=== PATIENT | male | born 1945 | race Caucasian/White ===

== ENCOUNTER 2016-05-10 20:46 | Inpatient (IN) | payer MEDICARE, MEDICAID ==
--- NOTE | 2016-05-10 20:52 | ED Physician Chart ---
Chief Complaint/HPI - Patient Information Date Seen:: 05/10/16 Time Seen:: 20:49 Chief Complaint:: ALOC History of Present Illness:: 70-year-old male history of dementia, TIA, brought in by EMS with acute, moderate, altered level of consciousness that happened earlier today. Also may have some associated lower leg swelling/infection. History limited patient underlying dementia prevents good history History provided by EMS and EMS run sheet Historian:: EMS Review:: Nurse's Note Reviewed, EMS run form Reviewed, Transfer documents Reviewed Review of Systems - Review of Systems Other: Complete system review otherwise unremarkable except as noted in HPI. Past Medical History - Past Medical History Past Medical History: HTN, Dyslipidemia, Dementia Family History: None Social History: Non Smoker, No Alcohol, No Drug Use, Care Facility Surgical History: None Psychiatricy History: None Medication: Reviewed Family Medical History - Family Member Mother History Unknown: Yes Ethnicity: Non- Physical Exam - Physical Examination Other:: INITIAL VITAL SIGNS: Reviewed by me GENERAL: Alert and interactive demented and oriented only to self. No acute distress HEAD: Head is normocephalic and atraumatic EYES: EOMI. . No scleral icterus. No conjunctival injection ENT: Moist mucous membranes. NECK: Supple. No masses. Full range of motion RESPIRATORY: No tachypnea. Clear breath sounds bilaterally. No wheezing, rales, or rhonchi CV: Regular rate and rhythm. No murmurs, rubs, or gallops ABDOMEN: Soft, non-distended, non-tender. No guarding. No rebound. No masses. EXTREMITIES: No deformity. No cyanosis. Slight bilateral lower extremity erythema and slight edema. SKIN: Warm and dry. No obvious rashes. NEUROLOGIC: Alert and oriented. Face is symmetric. Speech is normal. Moves all extremities equally. Motor and sensory distally intact. Labs/Radiology/EKG Results - Lab Results Results: Lab Results 05/10/16 05/10/16 05/10/16 Range/Units 21:11 21:16 21:16 WBC 7.7 (4.8-10.8) Th/cmm RBC 5.35 (3.80-5.80) Mil/cmm Hgb 15.3 (12.6-17.4) gm/dL Hct 46.3 (39.0-49.0) % MCV 86.6 (80-99) fl MCH 28.6 (27.0-31.0) pg MCHC Differential 33.0 (28.0-36.0) pg RDW 12.7 (11.5-20.0) % Plt Count 194 (150-400) Th/cmm MPV 9.3 fl Neutrophils % 56.9 (40.0-80.0) % Lymphocytes % 24.6 (20.0-50.0) % Monocytes % 11.4 H (2.0-10.0) % Eosinophils % 5.6 H (0.0-5.0) % Basophils % 1.5 (0.0-2.0) % PT 11.4 (9.5-11.5) SECONDS INR 1.09 (0.5-1.4) PTT (Actin FS) 28.4 (26.0-38.0) SECONDS D-Dimer (100-400) ng/mL Sodium 130 L (136-145) mEq/L Potassium 3.9 (3.5-5.1) mEq/L Chloride 100 (98-107) mEq/L Carbon Dioxide 24.1 (21.0-31.0) mEq/L Anion Gap 9.8 (7.0-16.0) BUN 14 (7-25) mg/dL Creatinine 1.0 (0.7-1.3) mg/dL Est GFR ( Amer) > 60.0 (>90) ml/min Est GFR (Non-Af Amer) > 60.0 ml/min BUN/Creatinine Ratio 14.0 Glucose 131 H (70-105) mg/dL Whole Bld Lactic Acid (0.60-1.99) mmol/L Calcium 9.1 (8.6-10.3) mg/dL Total Bilirubin 0.5 (0.3-1.0) mg/dL AST 17 (13-39) U/L ALT 23 (7-52) U/L Alkaline Phosphatase 71 (34-104) U/L Ammonia (16-53) umol/L Creatine Kinase 64 (30-223) U/L Total Protein 6.2 (6.0-8.3) gm/dL Albumin 3.7 L (4.2-5.5) gm/dL Globulin 2.5 gm/dL Albumin/Globulin Ratio 1.5 (1.0-1.8) 05/10/16 05/10/16 05/10/16 Range/Units 21:16 21:16 21:16 WBC (4.8-10.8) Th/cmm RBC (3.80-5.80) Mil/cmm Hgb (12.6-17.4) gm/dL Hct (39.0-49.0) % MCV (80-99) fl MCH (27.0-31.0) pg MCHC Differential (28.0-36.0) pg RDW (11.5-20.0) % Plt Count (150-400) Th/cmm MPV fl Neutrophils % (40.0-80.0) % Lymphocytes % (20.0-50.0) % Monocytes % (2.0-10.0) % Eosinophils % (0.0-5.0) % Basophils % (0.0-2.0) % PT (9.5-11.5) SECONDS INR (0.5-1.4) PTT (Actin FS) (26.0-38.0) SECONDS D-Dimer < 100 L (100-400) ng/mL Sodium (136-145) mEq/L Potassium (3.5-5.1) mEq/L Chloride (98-107) mEq/L Carbon Dioxide (21.0-31.0) mEq/L Anion Gap (7.0-16.0) BUN (7-25) mg/dL Creatinine (0.7-1.3) mg/dL Est GFR ( Amer) (>90) ml/min Est GFR (Non-Af Amer) ml/min BUN/Creatinine Ratio Glucose (70-105) mg/dL Whole Bld Lactic Acid 1.39 (0.60-1.99) mmol/L Calcium (8.6-10.3) mg/dL Total Bilirubin (0.3-1.0) mg/dL AST (13-39) U/L ALT (7-52) U/L Alkaline Phosphatase (34-104) U/L Ammonia 53 (16-53) umol/L Creatine Kinase (30-223) U/L Total Protein (6.0-8.3) gm/dL Albumin (4.2-5.5) gm/dL Globulin gm/dL Albumin/Globulin Ratio (1.0-1.8) - EKG Interpretations Comments:: 12-lead EKG Interpretation by Anival Walker MD: Normal Sinus Rhythm with ventricular rate of 78 beats per minute Normal axis Normal intervals Multi-forming ventricular premature complexes No acute ST or T wave changes. No obvious STEMI ED Septic Shock - . Is Septic Shock (SBP<90, OR Lactate>4 mmol\L) present?: No Reassessment (Disposition) - Reassessment Reassessment:: Patient is difficult to obtain a good history from. He does have underlying dementia. Unsure what his baseline is. Discussed the case with Dr. Bhatia. Patient appears to be change from his baseline mental status. Patient admitted for altered mental status - Diagnosis Diagnosis:: ALOC - Patient Disposition Discharge/Transfer:: Acute Care w/in this hosp Admitted to:: Med/Surg Time:: 22:44 Condition at Disposition:: Improved ED Discharge Plan - Patient Disposition Admit/Discharge/Transfer: Acute Care w/in this hosp
[2016-05-10] MEDS ORDERED: cefTRIAXone 1 GM in Sodium Chloride 0.9% 50 ML IV ONE (20:54)
[2016-05-10] MEDS ORDERED: Sodium Chloride 0.9% 500 ML IV ONE (20:54)
[2016-05-10 21:30] LABS: % BASOPHILS 1.5 % (0.0-2.0); % EOSINOPHILS 5.6 % (0.0-5.0); % LYMPHOCYTES 24.6 % (20.0-50.0); % MONOCYTES 11.4 % (2.0-10.0); % NEUTROPHILS 56.9 % (40.0-80.0); HEMATOCRIT 46.3 % (39.0-49.0); HEMOGLOBIN 15.3 gm/dL (12.6-17.4); MEAN CELL VOLUME 86.6 fl (80-99); MEAN CORPUSCULAR HEMOGLOBIN 28.6 pg (27.0-31.0); MEAN PLATELET VOLUME 9.3 fl; NEUTROPHILE ABSOLUTE 4.4 Th/cmm (1.8-8.0); PLATELET COUNT 194 Th/cmm (150-400); RED BLOOD COUNT 5.35 Mil/cmm (3.80-5.80); RED CELL DISTRIBUTION WIDTH 12.7 % (11.5-20.0); WHITE BLOOD COUNT 7.7 Th/cmm (4.8-10.8)
[2016-05-10 21:39] LABS: INR 1.09 (0.5-1.4); PROTHROMBIN TIME (TEST) 11.4 SECONDS (9.5-11.5)
[2016-05-10 21:43] LABS: ALB/GLOB RATIO 1.5 (1.0-1.8); ALKALINE PHOSPHATASE 71 U/L (34-104); ANION GAP 9.8 (7.0-16.0); BILIRUBIN,TOTAL 0.5 mg/dL (0.3-1.0); BUN - UREA NITROGEN 14 mg/dL (7-25); CALCIUM SERUM 9.1 mg/dL (8.6-10.3); CARBON DIOXIDE 24.1 mEq/L (21.0-31.0); CHLORIDE 100 mEq/L (98-107); GLUCOSE 131 mg/dL (70-105); POTASSIUM SERUM 3.9 mEq/L (3.5-5.1); SGOT 17 U/L (13-39); SGPT/ALT 23 U/L (7-52); SODIUM SERUM 130 mEq/L (136-145)
[2016-05-10] MEDS ORDERED: guaiFENesin 200 MG/10 ML UDC PO PRN (23:38)
[2016-05-10] MEDS ORDERED: Ipratropium Neb 0.5 mg/2.5 mL UD IH PRN (23:38)
[2016-05-10] MEDS ORDERED: Albuterol Nebulizer 2.5mg/3mL IH PRN (23:38)
[2016-05-10] MEDS ORDERED: D5-0.9%NS 1,000 ML IV SCH (23:45)
[2016-05-11 00:47] LABS: URINE BILIRUBIN NEGATIVE (NEGATIVE); URINE COLOR YELLOW; URINE GLUCOSE (UA) NEGATIVE (NEGATIVE); URINE KETONE NEGATIVE (NEGATIVE)
[2016-05-11 00:48] LABS: URINE BLOOD NEGATIVE (NEGATIVE); URINE PH 7.5; URINE PROTEIN NEGATIVE (NEGATIVE); URINE UROBILINOGEN 0.2 E.U./dL (0.2 - 1.0)
[2016-05-11 00:49] LABS: URINE BACTERIA NONE SEEN /hpf (NONE SEEN); URINE EPITHELIAL CELLS NONE SEEN /lpf (FEW); URINE RBC NONE SEEN /hpf (0-5); URINE WBC NONE SEEN /hpf (0-5)
--- NOTE | 2016-05-11 01:15 | Admit Criteria Form ---
Admit Criteria Forms - Admit Criteria Diagnosis: MENTAL STATUS CHANGE Clinical Indications for Inpatient Care (Place 'X' for any and all applicable criteria): Ongoing inpatient care may be needed for ANY ONE of the following(1)(2)(3)(5)(6) : [X ]I. Suspected serious etiology (eg, medical disorder, [employer] event) of mental status change [ ]II. Danger to self or others not manageable at lower level of care [ ]III. Grave disability (eg, inability to perform self care necessary at lower level of care) [ ]IV. Agitation or inappropriate behavior interfering with care for primary condition (eg, attempting to discontinue lines or drains prematurely, unable to cooperate with respiratory care) [ ]V. Delirium [A] [D][E] as described by ANY ONE of the following(26): [ ]a) Delirium due to alcohol or sedative [F] withdrawal [ ]b) Delirium of uncertain etiology that has not responded to appropriate empiric treatment [ ]c) Delirium that prevents performance of a life-sustaining function (eg, feeding or hydrating oneself) [ X]. General contraindications and/or Inappropriate clinical situations for Observational Care in patients with Mental Status Change, when ANY ONE of the following is required: [ X]a) Prediction of prolongation of LOS based on ANY ONE of the following may be considered as a contraindication for observational care 2, 3, 4, 5, 6, 7, 8, 9, 10, 11 [X ]i) Age > 65 yrs. [ ]ii) Patient arriving by ambulance [ ]iii) Patient with high acuity [ ]iv) Patient requiring vital sign monitoring [ ]v) Patient on IV medication [ ]b) Systolic blood pressures 180mmHg 3,12 [ ]c) Patient with altered mental status including delirium and other alteration of consciousness, (3) [ ]d) Patient whose discharge disposition will be to a intermediate home or rehabilitation home should not be managed in Emergency Department Observation Unit. CMS rule requires 3 days hospital stay before such placement.3,13 [ ]e) Patient with failure to thrive due to broad array of etiologies 3,16,17 [ ]f) Inability to ambulate 3,14 Extended stay beyond goal length of stay for the primary condition may be needed until ALL of the following are present(3)(5): [ ]a) Underlying medical etiology of mental status change is absent, or has been established and adequately treated [ ]b) Danger to self or others is absent or manageable at lower level of care. [ ]c) Behavior crisis management, including physical or chemical restraints, is not required or available at lower level of car [ ]d) Substance or alcohol withdrawal is absent or manageable at lower level of care. [ ]e) Behavioral symptoms (eg, agitation, somnolence, inappropriate behavior) are absent, or are manageable at lower level of care. The original [facility] content created by [facility] has been revised. The portions of the content which have been revised are identified through the use of italic text or in bold, and [facility] has neither reviewed nor approved the modified material. All other unmodified content is copyright [facility]. Please see references footnoted in the original [facility] edition 2016 Admit Criteria Met?: Yes
[2016-05-11 09:18] LABS: % BASOPHILS 1.5 % (0.0-2.0); % LYMPHOCYTES 23.8 % (20.0-50.0); % MONOCYTES 9.4 % (2.0-10.0); % NEUTROPHILS 58.3 % (40.0-80.0); MEAN CELL VOLUME 84.2 fl (80-99); MEAN CORPUSCULAR HEMOGLOBIN 28.6 pg (27.0-31.0); MEAN PLATELET VOLUME 9.6 fl; NEUTROPHILE ABSOLUTE 3.3 Th/cmm (1.8-8.0); PLATELET COUNT 182 Th/cmm (150-400); RED BLOOD COUNT 5.59 Mil/cmm (3.80-5.80); RED CELL DISTRIBUTION WIDTH 12.9 % (11.5-20.0); WHITE BLOOD COUNT 5.7 Th/cmm (4.8-10.8)
[2016-05-11 09:36] LABS: BUN - UREA NITROGEN 11 mg/dL (7-25); CALCIUM SERUM 9.3 mg/dL (8.6-10.3); CARBON DIOXIDE 28.3 mEq/L (21.0-31.0); CHLORIDE 102 mEq/L (98-107); CREATININE - SERUM 1.1 mg/dL (0.7-1.3); GLUCOSE 149 mg/dL (70-105); MAGNESIUM 2.1 mg/dL (1.9-2.7); POTASSIUM SERUM 4.3 mEq/L (3.5-5.1); SODIUM SERUM 131 mEq/L (136-145)
[2016-05-11 10:22] LABS: TSH 2.14 uIU/ml (0.34-5.60)
[2016-05-11] MEDS: D5-0.9%NS 1,000 ML IV SCH (13:25)
--- NOTE | 2016-05-11 15:45 | Consultation ---
REASON FOR CONSULTATION: Agitated behavior. PHYSICIAN REQUESTING CONSULTATION: Dr. Bhatia. HISTORY OF PRESENT ILLNESS: This patient is a 70-year-old admitted for altered level of consciousness and cellulitis of the left leg. Psychiatric consultation is called to address the issue of the patient's agitated behavior. I tried to interview the patient. The patient is grossly paranoid and psychotic and has been cursing out the staff and then me, and I was not able to get much information from this patient. The patient has no insight into his illness at this time and is not giving any information as well as his psychiatric treatment in the past ____. This is going to be a limited consultation. DIAGNOSES AT THIS TIME OF THE CONSULTATION: Psychotic disorder, unspecified. PLAN: To start the patient on Haldol on a p.r.n. basis and will try to follow him up tomorrow to see if any resolution with the psychosis and the patient be able to provide some information. JOB# [id number]
[2016-05-11] MEDS ORDERED: Non-Formulary Item 1 EA (Apixaban [Eliquis] 5 MG) PO SCH (17:00)
[2016-05-11] MEDS: Haloperidol Lactate 5 mg/mL 1mL Vial IM PRN (18:26)
[2016-05-11] MEDS: cefTRIAXone 1 GM in Sodium Chloride 0.9% 50 ML IV SCH (20:23)
[2016-05-12 06:59] LABS: % BASOPHILS 1.1 % (0.0-2.0); % EOSINOPHILS 6.5 % (0.0-5.0); % LYMPHOCYTES 26.4 % (20.0-50.0); % MONOCYTES 12.8 % (2.0-10.0); % NEUTROPHILS 53.2 % (40.0-80.0); HEMATOCRIT 48.2 % (39.0-49.0); HEMOGLOBIN 16.1 gm/dL (12.6-17.4); MEAN CELL VOLUME 85.5 fl (80-99); MEAN CORPUSCULAR HEMOGLOBIN 28.5 pg (27.0-31.0); MEAN CORPUSCULAR HGB CONC 33.3 pg (28.0-36.0); MEAN PLATELET VOLUME 9.4 fl; NEUTROPHILE ABSOLUTE 2.8 Th/cmm (1.8-8.0); PLATELET COUNT 175 Th/cmm (150-400); RED BLOOD COUNT 5.63 Mil/cmm (3.80-5.80); RED CELL DISTRIBUTION WIDTH 12.8 % (11.5-20.0); WHITE BLOOD COUNT 5.5 Th/cmm (4.8-10.8)
[2016-05-12 07:21] LABS: ANION GAP 8.8 (7.0-16.0); BUN - UREA NITROGEN 11 mg/dL (7-25); CALCIUM SERUM 9.5 mg/dL (8.6-10.3); CARBON DIOXIDE 27.6 mEq/L (21.0-31.0); CHLORIDE 103 mEq/L (98-107); GLUCOSE 109 mg/dL (70-105); MAGNESIUM 1.9 mg/dL (1.9-2.7); POTASSIUM SERUM 4.4 mEq/L (3.5-5.1); SODIUM SERUM 135 mEq/L (136-145)
[2016-05-12] MEDS: Thiamine 100 mg/mL 2mL Vial IM SCH (08:20)
[2016-05-12] MEDS: Multivitamin w/ Minerals Tab PO SCH (08:20)
[2016-05-12] MEDS: Pantoprazole 40 mg EC Tab PO SCH (08:20)
[2016-05-12] MEDS ORDERED: Non-Formulary Item 1 EA (Metoprolol Succinate [Metoprolol Succinate] 25 MG) PO SCH (09:00)
[2016-05-12] MEDS: D5-0.9%NS 1,000 ML IV SCH (14:09)
--- NOTE | 2016-05-12 15:23 | Internal Medicine Prog Note ---
Internal Medicine Subjective - Subjective Patient seen and examined:: with staff, chart reviewed Patient is:: awake, verbal, interactive Patient Complaints of:: congestion Per staff patient is:: no adverse event, agitated, noncompliant, confused Internal Medicine Objective - Results Result Diagrams: 05/12/16 06:20 05/12/16 06:00 Recent Labs: Laboratory Last Values WBC 5.5 Th/cmm (4.8-10.8) 05/12/16 06:20 RBC 5.63 Mil/cmm (3.80-5.80) 05/12/16 06:20 Hgb 16.1 gm/dL (12.6-17.4) 05/12/16 06:20 Hct 48.2 % (39.0-49.0) 05/12/16 06:20 MCV 85.5 fl (80-99) 05/12/16 06:20 MCH 28.5 pg (27.0-31.0) 05/12/16 06:20 MCHC Differential 33.3 pg (28.0-36.0) 05/12/16 06:20 RDW 12.8 % (11.5-20.0) 05/12/16 06:20 Plt Count 175 Th/cmm (150-400) 05/12/16 06:20 MPV 9.4 fl 05/12/16 06:20 Neutrophils % 53.2 % (40.0-80.0) 05/12/16 06:20 Lymphocytes % 26.4 % (20.0-50.0) 05/12/16 06:20 Monocytes % 12.8 % (2.0-10.0) H 05/12/16 06:20 Eosinophils % 6.5 % (0.0-5.0) H 05/12/16 06:20 Basophils % 1.1 % (0.0-2.0) 05/12/16 06:20 ESR 1 mm/hr (0-20) 05/12/16 06:20 PT 11.4 SECONDS (9.5-11.5) 05/10/16 21:16 INR 1.09 (0.5-1.4) 05/10/16 21:16 PTT (Actin FS) 28.4 SECONDS (26.0-38.0) 05/10/16 21:16 D-Dimer < 100 ng/mL (100-400) L 05/10/16 21:16 Sodium 135 mEq/L (136-145) L 05/12/16 06:00 Potassium 4.4 mEq/L (3.5-5.1) 05/12/16 06:00 Chloride 103 mEq/L (98-107) 05/12/16 06:00 Carbon Dioxide 27.6 mEq/L (21.0-31.0) 05/12/16 06:00 Anion Gap 8.8 (7.0-16.0) 05/12/16 06:00 BUN 11 mg/dL (7-25) 05/12/16 06:00 Creatinine 1.0 mg/dL (0.7-1.3) 05/12/16 06:00 Est GFR ( Amer) > 60.0 ml/min (>90) 05/12/16 06:00 Est GFR (Non-Af Amer) > 60.0 ml/min 05/12/16 06:00 BUN/Creatinine Ratio 11.0 05/12/16 06:00 Glucose 109 mg/dL (70-105) H 05/12/16 06:00 Hemoglobin A1c % 5.5 % (4.0-6.0) 05/11/16 08:39 Whole Bld Lactic Acid 1.39 mmol/L (0.60-1.99) 05/10/16 21:16 Calcium 9.5 mg/dL (8.6-10.3) 05/12/16 06:00 Magnesium 1.9 mg/dL (1.9-2.7) 05/12/16 06:00 Total Bilirubin 0.5 mg/dL (0.3-1.0) 05/10/16 21:16 AST 17 U/L (13-39) 05/10/16 21:16 ALT 23 U/L (7-52) 05/10/16 21:16 Alkaline Phosphatase 71 U/L (34-104) 05/10/16 21:16 Ammonia 38 umol/L (16-53) 05/11/16 08:39 Creatine Kinase 64 U/L (30-223) 05/10/16 21:16 Total Protein 6.2 gm/dL (6.0-8.3) 05/10/16 21:16 Albumin 3.7 gm/dL (4.2-5.5) L 05/10/16 21:16 Globulin 2.5 gm/dL 05/10/16 21:16 Albumin/Globulin Ratio 1.5 (1.0-1.8) 05/10/16 21:16 TSH 2.14 uIU/ml (0.34-5.60) 05/11/16 08:39 Urine Source CLEAN C 05/10/16 23:00 Urine Color YELLOW 05/10/16 23:00 Urine Clarity CLEAR (CLEAR) 05/10/16 23:00 Urine pH 7.5 05/10/16 23:00 Ur Specific [place] 1.015 (1.005-1.030) 05/10/16 23:00 Urine Protein NEGATIVE mg/dL (NEGATIVE) 05/10/16 23:00 Urine Glucose (UA) NEGATIVE mg/dL (NEGATIVE) 05/10/16 23:00 Urine Ketones NEGATIVE mg/dL (NEGATIVE) 05/10/16 23:00 Urine Blood NEGATIVE (NEGATIVE) 05/10/16 23:00 Urine Nitrate NEGATIVE (NEGATIVE) 05/10/16 23:00 Urine Bilirubin NEGATIVE (NEGATIVE) 05/10/16 23:00 Urine Urobilinogen 0.2 E.U./dL (0.2 - 1.0) 05/10/16 23:00 Ur Leukocyte Esterase NEGATIVE (NEGATIVE) 05/10/16 23:00 Urine RBC NONE SEEN /hpf (0-5) 05/10/16 23:00 Urine WBC NONE SEEN /hpf (0-5) 05/10/16 23:00 Ur Epithelial Cells NONE SEEN /lpf (FEW) 05/10/16 23:00 Urine Bacteria NONE SEEN /hpf (NONE SEEN) 05/10/16 23:00 - Physical Exam Vitals and I&O: Vital Signs Temp 97.0 F 05/12/16 12:00 Pulse 73 05/12/16 12:00 Resp 18 05/12/16 12:00 BP 171/99 05/12/16 12:00 Pulse Ox 98 05/12/16 12:00 Intake & Output 05/11/16 05/12/16 05/12/16 18:59 06:59 18:59 Intake Total 1000 1100 Balance 1000 1100 Intake: Intake, IV Amount 1000 D5-0.9%Ns 1,000 ml @ 70 1000 mls/hr IV .[id number] [facility] Rx #:[id number] Oral 1000 100 Other: # Voids 3 2 # Bowel Movements 0 Active Medications: Current Medications Acetaminophen (Tylenol) 650 mg PO Q4HR PRN PRN Reason: Pain or Fever >101 Stop: 07/09/16 23:37 Albuterol Sulfate (Albuterol 2.5mg/3ml Neb Ud) 2.5 mg IH Q2HR PRN PRN Reason: Shortness of Breath or Wheeze Stop: 07/09/16 23:37 Atorvastatin Calcium (Lipitor) 80 mg PO HS AZALEA PRN Reason: Protocol Stop: 07/10/16 20:59 Last Admin: 05/11/16 20:24 Dose: 80 mg Clonidine HCl (Catapres) 0.1 mg PO Q6HR PRN PRN Reason: SBP GREATER THAN 160 Stop: 07/09/16 23:37 Diphenhydramine HCl (Benadryl 50 Mg/Ml) 50 mg IM Q6HR PRN PRN Reason: Agitation Stop: 07/10/16 13:09 Guaifenesin (Robitussin) 200 mg PO Q4HR PRN PRN Reason: Cough or Congestion Stop: 07/09/16 23:37 Haloperidol Lactate (Haldol) 5 mg IM Q6HR PRN PRN Reason: Agitation Stop: 07/10/16 13:09 Last Admin: 05/11/16 18:26 Dose: 5 mg Heparin Sodium (Porcine) (Heparin) 5,000 units SUBQ Q12HR [facility] Stop: 07/10/16 08:59 Last Admin: 05/12/16 08:20 Dose: 5,000 units Ceftriaxone Sodium 1 gm/ (Sodium Chloride) 50 mls @ 100 mls/hr IV Q24HR [facility] Stop: 07/10/16 20:59 Last Admin: 05/11/16 20:23 Dose: 100 mls/hr Dextrose/Sodium Chloride (D5-0.9%Ns) 1,000 mls @ 70 mls/hr IV .[id number] [facility] Stop: 07/10/16 12:13 Last Admin: 05/12/16 14:09 Dose: 70 mls/hr Ipratropium [place] (Atrovent Neb 0.5mg/2.5ml) 0.5 mg IH Q2HR PRN PRN Reason: Shortness of Breath or Wheeze Stop: 07/09/16 23:37 Levetiracetam (Keppra) 500 mg PO BID [facility] Stop: 07/10/16 16:59 Last Admin: 05/12/16 08:20 Dose: 500 mg Lorazepam (Ativan) 1 mg IV Q4HR PRN; Protocol PRN Reason: Seizure Stop: 07/09/16 23:37 Lorazepam (Ativan) 1 mg IM Q6HR PRN; Protocol PRN Reason: Agitation Stop: 07/10/16 13:09 Last Admin: 05/11/16 14:23 Dose: 1 mg Metoprolol Succinate (Toprol Xl) 25 mg PO DAILY [facility] Stop: 07/11/16 08:59 Last Admin: 05/12/16 08:20 Dose: 25 mg Ondansetron HCl (Zofran) 4 mg IV Q8H PRN PRN Reason: Nausea / Vomiting Stop: 07/09/16 23:37 Pantoprazole Sodium (Protonix) 40 mg PO DAILY [facility] Stop: 07/11/16 08:59 Last Admin: 05/12/16 08:20 Dose: 40 mg Rivaroxaban (Xarelto) 20 mg PO QDAC@1800 [facility] Stop: 07/10/16 17:59 Last Admin: 05/11/16 17:51 Dose: 20 mg Thiamine HCl (Vitamin B1) 100 mg IM DAILY [facility] Stop: 07/11/16 08:59 Last Admin: 05/12/16 08:20 Dose: 100 mg Zolpidem Tartrate (Ambien) 10 mg PO HS PRN PRN Reason: Insomnia Stop: 07/09/16 23:37 General: demented HEENT: NC/AT, PERRLA Neck: Supple, No JVD Lungs: congested, rales Cardiovascular: RRR, Normal S1, Normal S2 Abdomen: soft non-tender, globular, non-distended, positive bowel sound Extremities: excoriation Neurological: no change, unable to follow command Internal Medicine Assmt/Plan - Assessment Assessment: aloc rle cellulitis sx dementia sad gait instability - Plan Plan: cont on iv abx ivf sz precaution psych follow up abhijeet huff
[2016-05-12] MEDS: cefTRIAXone 1 GM in Sodium Chloride 0.9% 50 ML IV SCH (20:22)
[2016-05-12 22:24] LABS: AMPHETAMINE URINE NEGATIVE (NEGATIVE); BARBITURATES URINE NEGATIVE (NEGATIVE)
[2016-05-13] MEDS: Pantoprazole 40 mg EC Tab PO SCH (08:30)
[2016-05-13] MEDS: Multivitamin w/ Minerals Tab PO SCH (08:30)
[2016-05-13] MEDS: Thiamine 100 mg/mL 2mL Vial IM SCH (08:32)
--- NOTE | 2016-05-13 12:46 | Internal Medicine Prog Note ---
Internal Medicine Subjective - Subjective Service Date: 05/13/16 Patient seen and examined:: with staff Patient is:: awake, verbal Per staff patient is:: no adverse event Internal Medicine Objective - Results Result Diagrams: 05/12/16 06:20 05/12/16 06:00 Recent Labs: Laboratory Last Values WBC 5.5 Th/cmm (4.8-10.8) 05/12/16 06:20 RBC 5.63 Mil/cmm (3.80-5.80) 05/12/16 06:20 Hgb 16.1 gm/dL (12.6-17.4) 05/12/16 06:20 Hct 48.2 % (39.0-49.0) 05/12/16 06:20 MCV 85.5 fl (80-99) 05/12/16 06:20 MCH 28.5 pg (27.0-31.0) 05/12/16 06:20 MCHC Differential 33.3 pg (28.0-36.0) 05/12/16 06:20 RDW 12.8 % (11.5-20.0) 05/12/16 06:20 Plt Count 175 Th/cmm (150-400) 05/12/16 06:20 MPV 9.4 fl 05/12/16 06:20 Neutrophils % 53.2 % (40.0-80.0) 05/12/16 06:20 Lymphocytes % 26.4 % (20.0-50.0) 05/12/16 06:20 Monocytes % 12.8 % (2.0-10.0) H 05/12/16 06:20 Eosinophils % 6.5 % (0.0-5.0) H 05/12/16 06:20 Basophils % 1.1 % (0.0-2.0) 05/12/16 06:20 ESR 1 mm/hr (0-20) 05/12/16 06:20 PT 11.4 SECONDS (9.5-11.5) 05/10/16 21:16 INR 1.09 (0.5-1.4) 05/10/16 21:16 PTT (Actin FS) 28.4 SECONDS (26.0-38.0) 05/10/16 21:16 D-Dimer < 100 ng/mL (100-400) L 05/10/16 21:16 Sodium 135 mEq/L (136-145) L 05/12/16 06:00 Potassium 4.4 mEq/L (3.5-5.1) 05/12/16 06:00 Chloride 103 mEq/L (98-107) 05/12/16 06:00 Carbon Dioxide 27.6 mEq/L (21.0-31.0) 05/12/16 06:00 Anion Gap 8.8 (7.0-16.0) 05/12/16 06:00 BUN 11 mg/dL (7-25) 05/12/16 06:00 Creatinine 1.0 mg/dL (0.7-1.3) 05/12/16 06:00 Est GFR ( Amer) > 60.0 ml/min (>90) 05/12/16 06:00 Est GFR (Non-Af Amer) > 60.0 ml/min 05/12/16 06:00 BUN/Creatinine Ratio 11.0 05/12/16 06:00 Glucose 109 mg/dL (70-105) H 05/12/16 06:00 Hemoglobin A1c % 5.5 % (4.0-6.0) 05/11/16 08:39 Whole Bld Lactic Acid 1.39 mmol/L (0.60-1.99) 05/10/16 21:16 Calcium 9.5 mg/dL (8.6-10.3) 05/12/16 06:00 Magnesium 1.9 mg/dL (1.9-2.7) 05/12/16 06:00 Total Bilirubin 0.5 mg/dL (0.3-1.0) 05/10/16 21:16 AST 17 U/L (13-39) 05/10/16 21:16 ALT 23 U/L (7-52) 05/10/16 21:16 Alkaline Phosphatase 71 U/L (34-104) 05/10/16 21:16 Ammonia 38 umol/L (16-53) 05/11/16 08:39 Creatine Kinase 64 U/L (30-223) 05/10/16 21:16 Total Protein 6.2 gm/dL (6.0-8.3) 05/10/16 21:16 Albumin 3.7 gm/dL (4.2-5.5) L 05/10/16 21:16 Globulin 2.5 gm/dL 05/10/16 21:16 Albumin/Globulin Ratio 1.5 (1.0-1.8) 05/10/16 21:16 TSH 2.14 uIU/ml (0.34-5.60) 05/11/16 08:39 Urine Source CLEAN C 05/10/16 23:00 Urine Color YELLOW 05/10/16 23:00 Urine Clarity CLEAR (CLEAR) 05/10/16 23:00 Urine pH 7.5 05/10/16 23:00 Ur Specific [place] 1.015 (1.005-1.030) 05/10/16 23:00 Urine Protein NEGATIVE mg/dL (NEGATIVE) 05/10/16 23:00 Urine Glucose (UA) NEGATIVE mg/dL (NEGATIVE) 05/10/16 23:00 Urine Ketones NEGATIVE mg/dL (NEGATIVE) 05/10/16 23:00 Urine Blood NEGATIVE (NEGATIVE) 05/10/16 23:00 Urine Nitrate NEGATIVE (NEGATIVE) 05/10/16 23:00 Urine Bilirubin NEGATIVE (NEGATIVE) 05/10/16 23:00 Urine Urobilinogen 0.2 E.U./dL (0.2 - 1.0) 05/10/16 23:00 Ur Leukocyte Esterase NEGATIVE (NEGATIVE) 05/10/16 23:00 Urine RBC NONE SEEN /hpf (0-5) 05/10/16 23:00 Urine WBC NONE SEEN /hpf (0-5) 05/10/16 23:00 Ur Epithelial Cells NONE SEEN /lpf (FEW) 05/10/16 23:00 Urine Bacteria NONE SEEN /hpf (NONE SEEN) 05/10/16 23:00 Urine Opiates Screen NEGATIVE (NEGATIVE) 05/12/16 21:00 Ur Barbiturates Screen NEGATIVE (NEGATIVE) 05/12/16 21:00 Ur Phencyclidine Scrn NEGATIVE (NEGATIVE) 05/12/16 21:00 Amphetamines Screen NEGATIVE (NEGATIVE) 05/12/16 21:00 U Methamphetamines Scrn NEGATIVE (NEGATIVE) 05/12/16 21:00 U Benzodiazepines Scrn POSITIVE (NEGATIVE) H 05/12/16 21:00 U Cocaine Metab Screen NEGATIVE (NEGATIVE) 05/12/16 21:00 U Cannabinoids Screen NEGATIVE (NEGATIVE) 05/12/16 21:00 - Physical Exam Vitals and I&O: Vital Signs Temp 97.9 F 05/13/16 12:00 Pulse 73 05/13/16 12:00 Resp 18 05/13/16 12:00 BP 145/103 05/13/16 12:00 Pulse Ox 98 05/13/16 12:00 Intake & Output 05/12/16 05/13/16 05/13/16 18:59 06:59 18:59 Intake Total 500 350 Balance 500 350 Intake: Oral 500 350 Other: # Voids 2 5 Active Medications: Current Medications Acetaminophen (Tylenol) 650 mg PO Q4HR PRN PRN Reason: Pain or Fever >101 Stop: 07/09/16 23:37 Albuterol Sulfate (Albuterol 2.5mg/3ml Neb Ud) 2.5 mg IH Q2HR PRN PRN Reason: Shortness of Breath or Wheeze Stop: 07/09/16 23:37 Atorvastatin Calcium (Lipitor) 80 mg PO HS [place]ALEA PRN Reason: Protocol Stop: 07/10/16 20:59 Last Admin: 05/12/16 20:27 Dose: 80 mg Clonidine HCl (Catapres) 0.1 mg PO Q6HR PRN PRN Reason: SBP GREATER THAN 160 Stop: 07/09/16 23:37 Diphenhydramine HCl (Benadryl 50 Mg/Ml) 50 mg IM Q6HR PRN PRN Reason: Agitation Stop: 07/10/16 13:09 Guaifenesin (Robitussin) 200 mg PO Q4HR PRN PRN Reason: Cough or Congestion Stop: 07/09/16 23:37 Last Admin: 05/13/16 08:48 Dose: 200 mg Haloperidol Lactate (Haldol) 5 mg IM Q6HR PRN PRN Reason: Agitation Stop: 07/10/16 13:09 Last Admin: 05/11/16 18:26 Dose: 5 mg Heparin Sodium (Porcine) (Heparin) 5,000 units SUBQ Q12HR [facility] Stop: 07/10/16 08:59 Last Admin: 05/13/16 08:30 Dose: 5,000 units Ceftriaxone Sodium 1 gm/ (Sodium Chloride) 50 mls @ 100 mls/hr IV Q24HR [facility] Stop: 07/10/16 20:59 Last Admin: 05/12/16 20:22 Dose: 100 mls/hr Dextrose/Sodium Chloride (D5-0.9%Ns) 1,000 mls @ 70 mls/hr IV .[id number] [facility] Stop: 07/10/16 12:13 Last Admin: 05/12/16 14:09 Dose: 70 mls/hr Ipratropium [place] (Atrovent Neb 0.5mg/2.5ml) 0.5 mg IH Q2HR PRN PRN Reason: Shortness of Breath or Wheeze Stop: 07/09/16 23:37 Levetiracetam (Keppra) 500 mg PO BID [facility] Stop: 07/10/16 16:59 Last Admin: 05/13/16 08:30 Dose: 500 mg Lorazepam (Ativan) 1 mg IV Q4HR PRN; Protocol PRN Reason: Seizure Stop: 07/09/16 23:37 Lorazepam (Ativan) 1 mg IM Q6HR PRN; Protocol PRN Reason: Agitation Stop: 07/10/16 13:09 Last Admin: 05/12/16 18:08 Dose: 1 mg Metoprolol Succinate (Toprol Xl) 25 mg PO DAILY [facility] Stop: 07/11/16 08:59 Last Admin: 05/13/16 08:31 Dose: 25 mg Ondansetron HCl (Zofran) 4 mg IV Q8H PRN PRN Reason: Nausea / Vomiting Stop: 07/09/16 23:37 Pantoprazole Sodium (Protonix) 40 mg PO DAILY [facility] Stop: 07/11/16 08:59 Last Admin: 05/13/16 08:30 Dose: 40 mg Risperidone (Risperdal) 0.5 mg PO HS [facility]ALEA PRN Reason: Protocol Stop: 07/12/16 20:59 Rivaroxaban (Xarelto) 20 mg PO QDAC@1800 [facility] Stop: 07/10/16 17:59 Last Admin: 05/12/16 20:07 Dose: 20 mg Thiamine HCl (Vitamin B1) 100 mg IM DAILY [facility] Stop: 07/11/16 08:59 Last Admin: 05/13/16 08:32 Dose: 100 mg Zolpidem Tartrate (Ambien) 10 mg PO HS PRN PRN Reason: Insomnia Stop: 07/09/16 23:37 General: weak, alert HEENT: NC/AT, PERRLA Neck: Supple Lungs: CTAB Cardiovascular: RRR, Normal S1, Normal S2, without murmur Abdomen: soft non-tender, non-distended Internal Medicine Assmt/Plan - Assessment Assessment: aloc rle cellulitis sx dementia sad gait instability - Plan Plan: seizure precautions ivabx f/u labs in am continue current rx
[2016-05-13] MEDS: D5-0.9%NS 1,000 ML IV SCH (16:45)
[2016-05-13] MEDS: cefTRIAXone 1 GM in Sodium Chloride 0.9% 50 ML IV SCH (21:24)
[2016-05-14 06:13] LABS: FOLIC ACID 11.2 ng/mL (>3.0)
[2016-05-14 07:26] LABS: ANION GAP 9.6 (7.0-16.0); BUN - UREA NITROGEN 15 mg/dL (7-25); BUN/CREATININE RATIO 16.7; CALCIUM SERUM 9.1 mg/dL (8.6-10.3); CARBON DIOXIDE 22.6 mEq/L (21.0-31.0); CHLORIDE 102 mEq/L (98-107); CREATININE - SERUM 0.9 mg/dL (0.7-1.3); GLUCOSE 93 mg/dL (70-105); POTASSIUM SERUM 4.2 mEq/L (3.5-5.1); SODIUM SERUM 130 mEq/L (136-145)
[2016-05-14 07:37] LABS: % BASOPHILS 1.3 % (0.0-2.0); % EOSINOPHILS 4.7 % (0.0-5.0); % LYMPHOCYTES 22.7 % (20.0-50.0); % MONOCYTES 13.1 % (2.0-10.0); % NEUTROPHILS 58.2 % (40.0-80.0); HEMATOCRIT 47.3 % (39.0-49.0); MEAN CELL VOLUME 85.4 fl (80-99); MEAN CORPUSCULAR HGB CONC 33.9 pg (28.0-36.0); MEAN PLATELET VOLUME 10.1 fl; NEUTROPHILE ABSOLUTE 4.3 Th/cmm (1.8-8.0); PLATELET COUNT 183 Th/cmm (150-400); RED BLOOD COUNT 5.54 Mil/cmm (3.80-5.80)
[2016-05-14 07:45] LABS: WHITE BLOOD COUNT 7.2 Th/cmm (4.8-10.8)
[2016-05-14] MEDS: Multivitamin w/ Minerals Tab PO SCH (08:20)
[2016-05-14] MEDS: Thiamine 100 mg/mL 2mL Vial IM SCH (08:21)
[2016-05-14] MEDS: Pantoprazole 40 mg EC Tab PO SCH (08:21)
[2016-05-14] MEDS: Haloperidol Lactate 5 mg/mL 1mL Vial IM PRN (10:37)
--- NOTE | 2016-05-14 11:36 | Internal Medicine Prog Note ---
Internal Medicine Subjective - Subjective Service Date: 05/14/16 (DC SUMMARY [id number]) Internal Medicine Objective - Results Result Diagrams: 05/14/16 06:10 05/14/16 06:10 Recent Labs: Laboratory Last Values WBC 7.2 Th/cmm (4.8-10.8) D 05/14/16 06:10 RBC 5.54 Mil/cmm (3.80-5.80) 05/14/16 06:10 Hgb 16.0 gm/dL (12.6-17.4) 05/14/16 06:10 Hct 47.3 % (39.0-49.0) 05/14/16 06:10 MCV 85.4 fl (80-99) 05/14/16 06:10 MCH 29.0 pg (27.0-31.0) 05/14/16 06:10 MCHC Differential 33.9 pg (28.0-36.0) 05/14/16 06:10 RDW 13.0 % (11.5-20.0) 05/14/16 06:10 Plt Count 183 Th/cmm (150-400) 05/14/16 06:10 MPV 10.1 fl 05/14/16 06:10 Neutrophils % 58.2 % (40.0-80.0) 05/14/16 06:10 Lymphocytes % 22.7 % (20.0-50.0) 05/14/16 06:10 Monocytes % 13.1 % (2.0-10.0) H 05/14/16 06:10 Eosinophils % 4.7 % (0.0-5.0) 05/14/16 06:10 Basophils % 1.3 % (0.0-2.0) 05/14/16 06:10 ESR 1 mm/hr (0-20) 05/12/16 06:20 PT 11.4 SECONDS (9.5-11.5) 05/10/16 21:16 INR 1.09 (0.5-1.4) 05/10/16 21:16 PTT (Actin FS) 28.4 SECONDS (26.0-38.0) 05/10/16 21:16 D-Dimer < 100 ng/mL (100-400) L 05/10/16 21:16 Sodium 130 mEq/L (136-145) L 05/14/16 06:10 Potassium 4.2 mEq/L (3.5-5.1) 05/14/16 06:10 Chloride 102 mEq/L (98-107) 05/14/16 06:10 Carbon Dioxide 22.6 mEq/L (21.0-31.0) 05/14/16 06:10 Anion Gap 9.6 (7.0-16.0) 05/14/16 06:10 BUN 15 mg/dL (7-25) 05/14/16 06:10 Creatinine 0.9 mg/dL (0.7-1.3) 05/14/16 06:10 Est GFR ( Amer) > 60.0 ml/min (>90) 05/14/16 06:10 Est GFR (Non-Af Amer) > 60.0 ml/min 05/14/16 06:10 BUN/Creatinine Ratio 16.7 05/14/16 06:10 Glucose 93 mg/dL (70-105) 05/14/16 06:10 Hemoglobin A1c % 5.5 % (4.0-6.0) 05/11/16 08:39 Whole Bld Lactic Acid 1.39 mmol/L (0.60-1.99) 05/10/16 21:16 Calcium 9.1 mg/dL (8.6-10.3) 05/14/16 06:10 Magnesium 1.9 mg/dL (1.9-2.7) 05/12/16 06:00 Total Bilirubin 0.5 mg/dL (0.3-1.0) 05/10/16 21:16 AST 17 U/L (13-39) 05/10/16 21:16 ALT 23 U/L (7-52) 05/10/16 21:16 Alkaline Phosphatase 71 U/L (34-104) 05/10/16 21:16 Ammonia 38 umol/L (16-53) 05/11/16 08:39 Creatine Kinase 64 U/L (30-223) 05/10/16 21:16 Total Protein 6.2 gm/dL (6.0-8.3) 05/10/16 21:16 Albumin 3.7 gm/dL (4.2-5.5) L 05/10/16 21:16 Globulin 2.5 gm/dL 05/10/16 21:16 Albumin/Globulin Ratio 1.5 (1.0-1.8) 05/10/16 21:16 Vitamin B12 491 pg/mL (211-946) 05/11/16 08:39 Folic Acid 11.2 ng/mL (>3.0) 05/11/16 08:39 TSH 2.14 uIU/ml (0.34-5.60) 05/11/16 08:39 Urine Source CLEAN C 05/10/16 23:00 Urine Color YELLOW 05/10/16 23:00 Urine Clarity CLEAR (CLEAR) 05/10/16 23:00 Urine pH 7.5 05/10/16 23:00 Ur Specific [place] 1.015 (1.005-1.030) 05/10/16 23:00 Urine Protein NEGATIVE mg/dL (NEGATIVE) 05/10/16 23:00 Urine Glucose (UA) NEGATIVE mg/dL (NEGATIVE) 05/10/16 23:00 Urine Ketones NEGATIVE mg/dL (NEGATIVE) 05/10/16 23:00 Urine Blood NEGATIVE (NEGATIVE) 05/10/16 23:00 Urine Nitrate NEGATIVE (NEGATIVE) 05/10/16 23:00 Urine Bilirubin NEGATIVE (NEGATIVE) 05/10/16 23:00 Urine Urobilinogen 0.2 E.U./dL (0.2 - 1.0) 05/10/16 23:00 Ur Leukocyte Esterase NEGATIVE (NEGATIVE) 05/10/16 23:00 Urine RBC NONE SEEN /hpf (0-5) 05/10/16 23:00 Urine WBC NONE SEEN /hpf (0-5) 05/10/16 23:00 Ur Epithelial Cells NONE SEEN /lpf (FEW) 05/10/16 23:00 Urine Bacteria NONE SEEN /hpf (NONE SEEN) 05/10/16 23:00 Urine Opiates Screen NEGATIVE (NEGATIVE) 05/12/16 21:00 Ur Barbiturates Screen NEGATIVE (NEGATIVE) 05/12/16 21:00 Ur Phencyclidine Scrn NEGATIVE (NEGATIVE) 05/12/16 21:00 Amphetamines Screen NEGATIVE (NEGATIVE) 05/12/16 21:00 U Methamphetamines Scrn NEGATIVE (NEGATIVE) 05/12/16 21:00 U Benzodiazepines Scrn POSITIVE (NEGATIVE) H 05/12/16 21:00 U Cocaine Metab Screen NEGATIVE (NEGATIVE) 05/12/16 21:00 U Cannabinoids Screen NEGATIVE (NEGATIVE) 05/12/16 21:00 - Physical Exam Vitals and I&O: Vital Signs Temp 97.2 F 05/14/16 08:00 Pulse 56 05/14/16 08:20 Resp 20 05/14/16 08:00 BP 115/61 05/14/16 08:20 Pulse Ox 95 05/14/16 08:00 Intake & Output 05/13/16 05/14/16 05/14/16 18:59 06:59 18:59 Intake Total 1000 Balance 1000 Intake: Intake, IV Amount 1000 D5-0.9%Ns 1,000 ml @ 70 1000 mls/hr IV .[id number] [facility] Rx #:[id number] Active Medications: Current Medications Atorvastatin Calcium (Lipitor) 80 mg PO HS AZALEA PRN Reason: Protocol Stop: 07/10/16 20:59 Last Admin: 05/13/16 21:23 Dose: 80 mg Ipratropium [place] (Atrovent Neb 0.5mg/2.5ml) 0.5 mg IH Q2HR PRN PRN Reason: Shortness of Breath or Wheeze Stop: 07/09/16 23:37 Levetiracetam (Keppra) 500 mg PO BID [facility] Stop: 07/10/16 16:59 Last Admin: 05/14/16 08:21 Dose: 500 mg Metoprolol Succinate (Toprol Xl) 25 mg PO DAILY [facility] Stop: 07/11/16 08:59 Last Admin: 05/14/16 08:20 Dose: 25 mg Pantoprazole Sodium (Protonix) 40 mg PO DAILY [facility] Stop: 07/11/16 08:59 Last Admin: 05/14/16 08:21 Dose: 40 mg Risperidone (Risperdal) 0.5 mg PO HS AZALEA PRN Reason: Protocol Stop: 07/12/16 20:59 Rivaroxaban (Xarelto) 20 mg PO QDAC@1800 [facility] Stop: 07/10/16 17:59 Last Admin: 05/13/16 17:05 Dose: 20 mg Thiamine HCl (Vitamin B1) 100 mg IM DAILY [facility] Stop: 07/11/16 08:59 Last Admin: 05/14/16 08:21 Dose: 100 mg Internal Medicine Assmt/Plan - Assessment Assessment: aloc rle cellulitis sx dementia sad gait instability
--- NOTE | 2016-05-14 22:46 | Discharge Summary ---
DICTATED FOR: Jose Juan Bhatia D.O. FINAL DIAGNOSES: Right lower extremity cellulitis, which has improved; seizures; dementia; ____, gait instability. HISTORY OF PRESENT ILLNESS: This is a 70-year-old male who is a resident of [facility], who was brought here to [facility] for ALOC and has a right lower leg swelling. The patient did not have any fevers or any chills at the [facility]. For this reason, the patient was evaluated. PAST MEDICAL HISTORY: Hypertension. PHYSICAL EXAMINATION: GENERAL: The patient is well developed, well nourished, in no acute distress. VITAL SIGNS: Stable. HEENT: Head, normocephalic, atraumatic. NECK: Supple. No mass. LUNGS: Clear bilaterally. HEART: Regular rate and rhythm. ABDOMEN: Soft, nontender, nondistended. HOSPITAL COURSE: During the hospital stay, the patient was admitted to the med/surg unit. The patient was on IV antibiotics of Rocephin 1 g. The patient was also kept on IV fluids for hydration as well and also a psychiatrist was on the case. The patient had a one-to-one sitter for safety. The patient did not have any fevers during the hospital stay. The patient is stable for discharge. CONDITION UPON DISCHARGE: Fair. DISPOSITION: The patient is going to [facility]. JOB# [id number]
--- NOTE | 2016-06-06 16:38 | History & Physical ---
ADMIT DATE: 05/11/2016 CHIEF COMPLAINT: Change in mental status, leg redness. HISTORY OF PRESENT ILLNESS: This is a 70-year-old ____ male with history of seizure, hypertension, and obesity was admitted from facility at [place] secondary to change in mental status. The patient also with history of coronary artery disease per medical records. The patient is not best historian. He is yelling and screaming at times. The patient was also given diagnosis of cellulitis of the lower leg. PAST MEDICAL HISTORY: As mentioned in the history of present illness. PAST SURGICAL HISTORY: ____. ALLERGIES: No known drug allergies. MEDICATIONS: Eliquis, Lipitor, Keppra, metoprolol, multivitamins, pantoprazole, thiamine. FAMILY HISTORY: Noncontributory. SOCIAL HISTORY: The patient is nonsmoker, nondrinker. The patient ____. REVIEW OF SYSTEMS: GENERAL: Complains of not feeling well. HEENT: No blurred vision. NECK: No neck pain. LUNGS: ____, COPD. HEART: The patient with hypertension and diagnosis of coronary artery disease [facility]. EXTREMITIES: Complaining of leg pain and redness. PSYCHIATRIC: As stated above. PHYSICAL EXAMINATION: VITAL SIGNS: Blood pressure 147/83, respirations 18, pulse ____. GENERAL: Elderly male, mildly obese. NECK: Supple. No mass. LUNGS: Equal breath sounds with few rhonchi. HEART: Regular rate and rhythm without appreciable murmur. ABDOMEN: Soft and nontender, globular. Positive bowel sounds. EXTREMITIES: Positive excoriation. Erythema in the right lower extremity. NEUROLOGIC: Limited. LABORATORY DATA: ____ WBC 5.7, hemoglobin 16, platelets 182. Sodium 130, potassium 3.9, BUN ____, creatinine 1.0, blood sugar 149. TSH ____. UA essentially negative. ASSESSMENT AND PLAN: Right lower extremity cellulitis, altered level of consciousness, seizure, hypertension, hyponatremia, coronary artery disease, hyperglycemia, ____. PLAN: We will continue the patient on IV antibiotics with gentle hydration. We will ____ Psychiatry. We will continue anticoagulation. We will continue to monitor the patient closely on monitor setting. JOB# [id number]
== END 2016-05-14 17:19 | DRG 603 ==
LOC: ER 20:46 → MSI 05-11 00:58
PROVIDERS: ADMIT Internal Medicine; ATTEND Internal Medicine
DX: L03.115 Cellulitis of right lower limb (principal); F03.90 Unspecified dementia, unspecified severity, without behavioral disturbance, psychotic disturbance, mood disturbance, and anxiety; R56.9 Unspecified convulsions; E87.1 Hypo-osmolality and hyponatremia; R26.9 Unspecified abnormalities of gait and mobility; F29 Unspecified psychosis not due to a substance or known physiological condition; I10 Essential (primary) hypertension; E78.5 Hyperlipidemia, unspecified; F25.9 Schizoaffective disorder, unspecified; R40.4 Transient alteration of awareness; Z86.73 Personal history of transient ischemic attack (TIA), and cerebral infarction without residual deficits; Z91.14 Patient's other noncompliance with medication regimen
CPT/HCPCS: 36415-UA; 80048-TC; 80053-TC; 81001-TC; 82140-TC; 82550-TC; 82607-90; 82746-90; 83036-90; 83605; 83735-TC; 84443-TC; 85025-TC; 85379-TC; 85610-TC; 85652-TC; 85730-TC; 93005; J0696; J1630; J1644; J2060; J3411; J7040; J7042; Z7610

== ENCOUNTER 2016-10-07 02:04 | Inpatient (IN) | payer MEDICARE, MEDICAID ==
--- NOTE | 2016-10-07 02:44 | ED Physician Chart ---
Chief Complaint/HPI - Patient Information Date Seen:: 10/07/16 Time Seen:: 02:30 Chief Complaint:: Recurrent seizure History of Present Illness:: Brought in by ambulance because pt was noticed to have recurrent seizure at least 3 times this past evening with last occurrence at around midnight. Pt now appears to be comfortable. Pt denies any bodily pain or discomfort. Pt reportedly has h/o dementia and his baseline mental functioning is alert and oriented x 2. H & P are limited because pt is not fully cooperative. Info is primarily from review of limited transfer documents. Allergies:: Allergies Allergy/AdvReac Type Severity Reaction Status Date / Time No Known Allergies Allergy Verified 10/07/16 02:25 Vitals:: Vital Signs - 8 hr 10/07/16 02:05 Temp 97.9 F HR 69 RR 18 BP 144/91 O2 Sat % 96 Historian:: Patient, Medical Records (from transferring facility.) Family MD/PCP:: Dr. Garcia LMP:: N/A Review:: Nurse's Note Reviewed, Transfer documents Reviewed Review of Systems - Review of Systems General/Constitutional: No fever, No chills, No weight loss, No weakness, No edema, No loss of appetite, Other Skin: No skin lesions, No bruising Head: No headache, No light-headedness Eyes: No loss of vision, No pain, No diplopia ENT: No earache, No nasal drainage, No sore throat, No tinnitus Neck: No neck pain, No swelling, No thyromegaly, No stiffness, No mass noted Cardio Vascular: No chest pain, No palpitations, No edema Pulmonary: No SOB, No cough, No wheezing GI: No nausea, No vomiting, No diarrhea, No pain G/U: No dysuria, No frequency, No hematuria Musculoskeletal: No bone or joint pain, No back pain, No muscle pain Endocrine: No polyuria, No polydipsia Psychiatric: Prior psych history, No depression, No anxiety, No auditory hallucination, No visual hallucination Hematopoietic: No bruising, No lymphadenopathy Allergic/Immuno: Urticaria Neurological: No syncope, No focal symptoms, No weakness, No paresthesia, No headache, Seizure, Confusion (Pt has baseline confusion), No vertigo Past Medical History - Past Medical History Past Medical History: HTN, CVA/TIA (h/o TIA), Dyslipidemia, Dementia, Other ( Atrial fibrillation) Family History: None Social History: Non Smoker, No Alcohol, No Drug Use, Single, Care Facility Employment:: retired. Family Medical History - Family Member Mother History Unknown: Yes Ethnicity: Non- Physical Exam - Physical Examination General/Constitutional: Awake, Well-developed, well-nourished, Alert, No distress, Non-toxic appearing Other Gen/Cons comments:: Breathes comfortably, speaks clearly, but is not fully cooperative. Head: Atraumatic Eyes: Lids, conjuctiva normal, PERRL, EOMI Skin: No rash, No ecchymosis, Well hydrated, No lymphadenopathy ENMT: External ears, nose nl, Nasal exam nl, Lips, teeth, gums nl, Oropharynx nl Neck: Nontender, Full ROM w/o pain, No JVD, No nuchal rigidity, No bruit, No mass, No stridor Respiratory: Nl effort/Exclusion, Clear to Auscultation, No Wheeze/Rhonchi/Rales Cardio Vascular: No murmur, gallop, rubs Other Cardio Vascular comments:: Slightly irregular rhythm with HR 62. GI: No tenderness/rebounding/guarding, No organomegaly, Normal BS's, Nondistended Other GI comments:: Abdomen is obese but soft. : No CVA tenderness Extremities: No tenderness or effusion, Full ROM, No edema Neuro/Psych: Alert/oriented (knows his name and that he is in hospital.) Other Neuro/Psych comments:: Spontaneous movements noticed in all 4 extremities. Pt does not cooperate fully for neurological exam. Labs/Radiology/EKG Results - Lab Results Results: Laboratory Tests 10/07/16 10/07/16 10/07/16 03:12 03:12 03:12 WBC 7.1 RBC 5.51 Hgb 15.9 Hct 47.6 MCV 86.3 MCH 28.8 MCHC Differential 33.3 RDW 14.1 Plt Count 174 MPV 9.2 Neutrophils % 60.3 Lymphocytes % 20.4 Monocytes % 13.5 H Eosinophils % 4.6 Basophils % 1.2 PT 13.2 H INR 1.25 PTT (Actin FS) 29.8 Sodium 129 L Potassium 4.3 Chloride 101 Carbon Dioxide 22.7 Anion Gap 9.6 BUN 10 Creatinine 1.1 Est GFR ( Amer) > 60.0 Est GFR (Non-Af Amer) > 60.0 BUN/Creatinine Ratio 9.1 Glucose 121 H Calcium 9.4 Magnesium 2.1 Total Bilirubin 0.8 AST 18 ALT 20 Alkaline Phosphatase 79 Total Protein 6.1 Albumin 3.8 L Globulin 2.3 Albumin/Globulin Ratio 1.7 Urinalysis is pending. - Radiology Results Results: Head CT without contrast: No ICH, mass effect or edema. No evidence of acute cortical stroke. Status post left frontoparietal craniectomy with cranioplasty. There is small amount of gas within in the cranioplasty substrate, likely reflecting the expected postoperative appearance. There is no evidence of pneumocephalus. There is chronic dural thickening and calcification. Marked volume loss and multifocal encephalomalacia. mild-moderate ventriculomegaly, most likely due to volume loss. Mild hydrocephalus is in the differential. No evidence of acute fracture. Official report per Dr. Bruna Robison, radiologist. - EKG Interpretations EKG Time:: 03:08 Rate & Rhythm: Atrial fibrillation with VR 57 Comments:: Multiple PVC's. No acute ischemic changes. bus monitor: A fibrillation with VR 62. Occasional PVC's. ED Septic Shock - . Is Septic Shock (SBP<90, OR Lactate>4 mmol\L) present?: No - <6hrs of presentation: Vital Signs: Vital Signs - 8 hr 10/07/16 02:05 Temp 97.9 F HR 69 RR 18 BP 144/91 O2 Sat % 96 Reassessment (Disposition) - Reassessment Reassessment:: 0532 Pt has just had an episode of tonic clonic seizure. Ativan one mg IVP has been given. Pt is now postictal. Head CT report just became available. Dr. Sanford is to be contacted. 0545 Pt is now more alert and responsive. No recurrent seizure activities. Case was discussed with Dr. Sanford with pertinent H & P, available lab results, EKG, and CT findings reviewed. Pt is to be admitted to [facility] under his care. Dr. Sanford is to follow on pending lab results. Reassessment Condition:: Improved - Diagnosis Diagnosis:: Seizure disorder with recurrences, now stable. Chronic atrial fibrillation. H/O HTN H/O Dementia - Patient Disposition Admitted to:: Telemetry Admitting Medical Physician:: Kiet Sanford Time:: 05:50 Condition at Disposition:: Stable, Improved
[2016-10-07 03:25] LABS: % BASOPHILS 1.2 % (0.0-2.0); % EOSINOPHILS 4.6 % (0.0-5.0); MEAN CELL VOLUME 86.3 fl (80-99); MEAN PLATELET VOLUME 9.2 fl
[2016-10-07 03:30] LABS: % LYMPHOCYTES 20.4 % (20.0-50.0); % MONOCYTES 13.5 % (2.0-10.0); % NEUTROPHILS 60.3 % (40.0-80.0); HEMATOCRIT 47.6 % (39.0-49.0); HEMOGLOBIN 15.9 gm/dL (12.6-17.4); MEAN CORPUSCULAR HEMOGLOBIN 28.8 pg (27.0-31.0); MEAN CORPUSCULAR HGB CONC 33.3 pg (28.0-36.0); NEUTROPHILE ABSOLUTE 4.3 Th/cmm (1.8-8.0); PLATELET COUNT 174 Th/cmm (150-400); RED BLOOD COUNT 5.51 Mil/cmm (3.80-5.80); RED CELL DISTRIBUTION WIDTH 14.1 % (11.5-20.0); WHITE BLOOD COUNT 7.1 Th/cmm (4.8-10.8)
[2016-10-07 03:37] LABS: INR 1.25 (0.5-1.4); PROTHROMBIN TIME (TEST) 13.2 SECONDS (9.5-11.5)
[2016-10-07 03:38] LABS: ALB/GLOB RATIO 1.7 (1.0-1.8); ALKALINE PHOSPHATASE 79 U/L (34-104); BILIRUBIN,TOTAL 0.8 mg/dL (0.3-1.0); BUN - UREA NITROGEN 10 mg/dL (7-25); CALCIUM SERUM 9.4 mg/dL (8.6-10.3); CHLORIDE 101 mEq/L (98-107); GLUCOSE 121 mg/dL (70-105); POTASSIUM SERUM 4.3 mEq/L (3.5-5.1); SGOT 18 U/L (13-39); SGPT/ALT 20 U/L (7-52); SODIUM SERUM 129 mEq/L (136-145)
[2016-10-07 04:27] LABS: ANION GAP 9.6 (7.0-16.0); BUN/CREATININE RATIO 9.1; CARBON DIOXIDE 22.7 mEq/L (21.0-31.0); CREATININE - SERUM 1.1 mg/dL (0.7-1.3); MAGNESIUM 2.1 mg/dL (1.9-2.7)
--- NOTE | 2016-10-07 08:27 | Diagnostic Imaging Report ---
Head CT without intravenous contrast Indication: Recurrent seizures Comparison: None Technique: Axial images were obtained from the vertex to the skull base without IV contrast. Coronal reconstructions were made. Total DLP: 846, CTDI40.6 FINDINGS: Images of the brain obtained without contrast demonstrate evidence of previous left frontal and temporal craniotomies with associated postsurgical changes. Overlying surgical plates are seen. Few pockets of gas are seen within the left frontal craniotomy defect. Areas of dural thickening and calcifications are also seen along the left frontal and temporal regions likely sequela patient's surgery. Diffuse encephalomalacia is seen along the bifrontal lobe regions. Additional encephalomalacia is also seen along the left temporal lobe and left cerebellar region. Atrophy is noted. There is mild prominence of ventricular system. Mild white matter disease is noted. No mass effect or midline shift. The ventricles and basal cisterns are patent. No evidence of pneumocephalus. No focal soft tissue swelling. There is mucosal thickening in the paranasal sinuses. IMPRESSION: Extensive postsurgical changes with evidence of left frontal and left temporal craniotomies with associated postsurgical changes. Pockets of gas are seen within the left frontal craniotomy site which may be related to patient's surgery. Please correlate with clinical findings and old exams. No evidence of an acute hemorrhage Diffuse bifrontal lobe encephalomalacia. Additional areas of encephalomalacia of the left temporal lobe and left cerebellar hemisphere are noted. Atrophy. Mild prominence of ventricular system is likely related to patient's atrophy. Mild supratentorial white matter disease which is nonspecific and may be due to chronic microvessel ischemia.
--- NOTE | 2016-10-07 08:33 | History and Physical ---
History of Present Illness - HPI Chief Complaint: Seizure episodes HPI: Patient had 3 seizure episodes in the evening reason why patient was brought to ER for Evaluation. Vital Signs: Last Vital Signs Temp 97.4 F 10/07/16 07:00 Pulse 82 10/07/16 07:00 Resp 18 10/07/16 07:00 BP 138/74 10/07/16 07:00 Pulse Ox 97 10/07/16 07:00 Past Medical History Cardiovascular: Report: AFIB, HTN Pulmonary: Report: No Pertinent Hx W[employer]: Report: CVA, Dementia, Seizure GI: Report: No Pertinent Hx Psych: Report: Schizophrenia Musculoskeletal: Report: No Pertinent Hx Rheumatologic: Report: No pertinent Hx Infectious Disease: Report: No Pertinent Hx Renal/: Report: No Pertinent Hx Endocrine: Report: No Pertinent Hx Dermatology: Report: No Pertinent Hx - Past Surgical History Past Surgical History: Other (Craneotomy) Family Medical History - Family Member Mother History Unknown: Yes Ethnicity: Non- Social History Smoke: Quit Alcohol: None Drugs: None Lives: Alone Domestic Violence: Negative - Medications Home Medications: Home Medication Medication Instructions Recorded Type Metoprolol Succinate 25 mg PO DAILY 05/11/16 History Pantoprazole [Protonix] 40 mg PO DAILY 05/11/16 History Atorvastatin Calcium [Lipitor] 80 mg PO HS #0 tab 05/14/16 Rx Thiamine HCL [Vitamin B1] 100 mg IM DAILY #0 vial 05/14/16 Rx risperiDONE [RisperDAL] 0.5 mg PO BID #0 tab 05/14/16 Rx Levetiracetam [Keppra] 1,000 mg PO DAILY 10/07/16 History Levetiracetam [Keppra] 1,500 mg PO HS 10/07/16 History Rivaroxaban [Xarelto] 10 mg PO QDAC@1700 10/07/16 History - Allergies Allergies/Adverse Reactions: Allergies Allergy/AdvReac Type Severity Reaction Status Date / Time No Known Allergies Allergy Verified 10/07/16 02:25 Review of Systems - Review of Systems Constitutional: Report: No Significant Eyes: Report: No Significant ENT: Report: No Significant Respiratory: Report: No Significant Cardiovascular: Report: No Significant Gastrointestinal: Report: No Significant Genitourinary: Report: No Significant Musculoskeletal: Report: No Significant Skin: Report: No Significant Neurological: Report: Seizures Physical Exam - Physical Exam HEENT: Report: Ears Nose Throat within normal limits Neck: Report: Within normal limits Cardiovascular Systems: Report: Regular, Rate and Rhythm Respiratory: Report: Breath Sounds are within normal limits Abdomen: Report: Non-tender to palpation Back: Report: Inspection of back is within normal limits. Extremities: Report: Non-tender to palpation. Skin: Report: Warm, Dry Neuro/Psych: Report: Disoriented to name time or place, No sensory deficit - Lab Results All Lab Results last 24 hours: Laboratory Last Values WBC 7.1 Th/cmm (4.8-10.8) 10/07/16 03:12 RBC 5.51 Mil/cmm (3.80-5.80) 10/07/16 03:12 Hgb 15.9 gm/dL (12.6-17.4) 10/07/16 03:12 Hct 47.6 % (39.0-49.0) 10/07/16 03:12 MCV 86.3 fl (80-99) 10/07/16 03:12 MCH 28.8 pg (27.0-31.0) 10/07/16 03:12 MCHC Differential 33.3 pg (28.0-36.0) 10/07/16 03:12 RDW 14.1 % (11.5-20.0) 10/07/16 03:12 Plt Count 174 Th/cmm (150-400) 10/07/16 03:12 MPV 9.2 fl 10/07/16 03:12 Neutrophils % 60.3 % (40.0-80.0) 10/07/16 03:12 Lymphocytes % 20.4 % (20.0-50.0) 10/07/16 03:12 Monocytes % 13.5 % (2.0-10.0) H 10/07/16 03:12 Eosinophils % 4.6 % (0.0-5.0) 10/07/16 03:12 Basophils % 1.2 % (0.0-2.0) 10/07/16 03:12 PT 13.2 SECONDS (9.5-11.5) H 10/07/16 03:12 INR 1.25 (0.5-1.4) 10/07/16 03:12 PTT (Actin FS) 29.8 SECONDS (26.0-38.0) 10/07/16 03:12 Sodium 129 mEq/L (136-145) L 10/07/16 03:12 Potassium 4.3 mEq/L (3.5-5.1) 10/07/16 03:12 Chloride 101 mEq/L (98-107) 10/07/16 03:12 Carbon Dioxide 22.7 mEq/L (21.0-31.0) 10/07/16 03:12 Anion Gap 9.6 (7.0-16.0) 10/07/16 03:12 BUN 10 mg/dL (7-25) 10/07/16 03:12 Creatinine 1.1 mg/dL (0.7-1.3) 10/07/16 03:12 Est GFR ( Amer) > 60.0 ml/min (>90) 10/07/16 03:12 Est GFR (Non-Af Amer) > 60.0 ml/min 10/07/16 03:12 BUN/Creatinine Ratio 9.1 10/07/16 03:12 Glucose 121 mg/dL (70-105) H 10/07/16 03:12 Calcium 9.4 mg/dL (8.6-10.3) 10/07/16 03:12 Magnesium 2.1 mg/dL (1.9-2.7) 10/07/16 03:12 Total Bilirubin 0.8 mg/dL (0.3-1.0) 10/07/16 03:12 AST 18 U/L (13-39) 10/07/16 03:12 ALT 20 U/L (7-52) 10/07/16 03:12 Alkaline Phosphatase 79 U/L (34-104) 10/07/16 03:12 Total Protein 6.1 gm/dL (6.0-8.3) 10/07/16 03:12 Albumin 3.8 gm/dL (4.2-5.5) L 10/07/16 03:12 Globulin 2.3 gm/dL 10/07/16 03:12 Albumin/Globulin Ratio 1.7 (1.0-1.8) 10/07/16 03:12 - Assessment Assessment: Patient is sleeping but arousable, in no acute distress. Dx: Seizure disorder, Dementia, A-fib, HTN, S/P CVA, S/P craneotomy. - Plan Plan: Patient in [facility]. Awaiting Neuro Eval. Will continue to monitor
[2016-10-07] MEDS ORDERED: Influenza Vaccine 0.5 mL Syr IM ONE (10:41)
[2016-10-07] MEDS ORDERED: Pneumococcal Vaccine 0.5 mL Vial IM ONE (11:30)
[2016-10-07] MEDS: Pantoprazole 40 mg EC Tab PO SCH (13:49)
[2016-10-07] MEDS ORDERED: VTE Chemical Prophylaxis Screen/Admission MC PRN (15:49)
[2016-10-08] MEDS: Pantoprazole 40 mg EC Tab PO SCH (07:08)
--- NOTE | 2016-10-08 08:29 | General Progress Note ---
Subjective - Review of Systems Service Date: 10/08/16 Subjective: I am OK. Objective - Results Result Diagrams: 10/07/16 03:12 10/07/16 03:12 Recent Labs: Laboratory Last Values WBC 7.1 Th/cmm (4.8-10.8) 10/07/16 03:12 RBC 5.51 Mil/cmm (3.80-5.80) 10/07/16 03:12 Hgb 15.9 gm/dL (12.6-17.4) 10/07/16 03:12 Hct 47.6 % (39.0-49.0) 10/07/16 03:12 MCV 86.3 fl (80-99) 10/07/16 03:12 MCH 28.8 pg (27.0-31.0) 10/07/16 03:12 MCHC Differential 33.3 pg (28.0-36.0) 10/07/16 03:12 RDW 14.1 % (11.5-20.0) 10/07/16 03:12 Plt Count 174 Th/cmm (150-400) 10/07/16 03:12 MPV 9.2 fl 10/07/16 03:12 Neutrophils % 60.3 % (40.0-80.0) 10/07/16 03:12 Lymphocytes % 20.4 % (20.0-50.0) 10/07/16 03:12 Monocytes % 13.5 % (2.0-10.0) H 10/07/16 03:12 Eosinophils % 4.6 % (0.0-5.0) 10/07/16 03:12 Basophils % 1.2 % (0.0-2.0) 10/07/16 03:12 PT 13.2 SECONDS (9.5-11.5) H 10/07/16 03:12 INR 1.25 (0.5-1.4) 10/07/16 03:12 PTT (Actin FS) 29.8 SECONDS (26.0-38.0) 10/07/16 03:12 Sodium 129 mEq/L (136-145) L 10/07/16 03:12 Potassium 4.3 mEq/L (3.5-5.1) 10/07/16 03:12 Chloride 101 mEq/L (98-107) 10/07/16 03:12 Carbon Dioxide 22.7 mEq/L (21.0-31.0) 10/07/16 03:12 Anion Gap 9.6 (7.0-16.0) 10/07/16 03:12 BUN 10 mg/dL (7-25) 10/07/16 03:12 Creatinine 1.1 mg/dL (0.7-1.3) 10/07/16 03:12 Est GFR ( Amer) > 60.0 ml/min (>90) 10/07/16 03:12 Est GFR (Non-Af Amer) > 60.0 ml/min 10/07/16 03:12 BUN/Creatinine Ratio 9.1 10/07/16 03:12 Glucose 121 mg/dL (70-105) H 10/07/16 03:12 Calcium 9.4 mg/dL (8.6-10.3) 10/07/16 03:12 Magnesium 2.1 mg/dL (1.9-2.7) 10/07/16 03:12 Total Bilirubin 0.8 mg/dL (0.3-1.0) 10/07/16 03:12 AST 18 U/L (13-39) 10/07/16 03:12 ALT 20 U/L (7-52) 10/07/16 03:12 Alkaline Phosphatase 79 U/L (34-104) 10/07/16 03:12 Total Protein 6.1 gm/dL (6.0-8.3) 10/07/16 03:12 Albumin 3.8 gm/dL (4.2-5.5) L 10/07/16 03:12 Globulin 2.3 gm/dL 10/07/16 03:12 Albumin/Globulin Ratio 1.7 (1.0-1.8) 10/07/16 03:12 - Physical Exam Vitals and I&O: Vital Signs Temp 97.5 F 10/08/16 04:00 Pulse 80 10/08/16 08:16 Resp 19 10/08/16 04:00 BP 147/95 10/08/16 08:16 Pulse Ox 96 10/08/16 04:00 Intake & Output 10/07/16 10/08/16 10/08/16 18:59 06:59 18:59 Intake Total 950 Output Total 0 Balance 950 Weight (lbs) 97.976 kg Intake: Oral 950 Output: Stool 0 Other: # Voids 2 # Bowel Movements 1 Active Medications: Current Medications Atorvastatin Calcium (Lipitor) 80 mg PO HS [facility] PRN Reason: Protocol Stop: 12/06/16 20:59 Last Admin: 10/07/16 20:54 Dose: 80 mg Heparin Sodium (Porcine) (Heparin) 5,000 units SUBQ Q12HR [facility] Stop: 12/06/16 20:59 Last Admin: 10/08/16 08:14 Dose: 5,000 units Levetiracetam (Keppra) 1,500 mg PO HS [facility] Stop: 12/06/16 20:59 Last Admin: 10/07/16 20:54 Dose: 1,500 mg Levetiracetam (Keppra) 1,000 mg PO DAILY [facility] Stop: 12/06/16 08:59 Last Admin: 10/08/16 08:15 Dose: 1,000 mg Lorazepam (Ativan) 1 mg IVP Q6H PRN; Protocol PRN Reason: Seizures Stop: 12/06/16 05:50 Metoprolol Succinate (Toprol Xl) 25 mg PO DAILY [facility] Stop: 12/06/16 11:59 Last Admin: 10/08/16 08:16 Dose: 25 mg Miscellaneous (Vte Chemical Prophylaxis Screen/ Admission) 1 ea [facility] PRN PRN PRN Reason: PROTOCOL Stop: 12/06/16 15:48 Pantoprazole Sodium (Protonix) 40 mg PO QDAC [facility] Stop: 12/06/16 11:29 Last Admin: 10/08/16 07:08 Dose: 40 mg Risperidone (Risperdal) 0.5 mg PO BID [facility] PRN Reason: Protocol Stop: 12/06/16 16:59 Last Admin: 10/08/16 08:15 Dose: 0.5 mg Rivaroxaban (Xarelto) 10 mg PO QDAC@1700 [facility] Stop: 12/06/16 16:59 Last Admin: 10/07/16 17:07 Dose: 10 mg General: Alert, Other (Confused) Cardiovascular: Regular rate Lungs: Clear to auscultation Abdomen: Bowel sounds, Soft Extremities: Other (No edema) Neurological: Other (Unstable gait) Skin: Other (Warm and dry) Psych/Mental Status: Other (Confused not oriented.) Assessment/Plan - Assessment Assessment: Patient is awake, in no acute distress. Dx: Seizure disorder, Dementia, A-fib, HTN, S/P CVA, S/P craneotomy. - Plan Plan: Patient in [place] Ativan. Awaiting Neuro Eval. Will continue to monitor
[2016-10-08 09:20] LABS: % BASOPHILS 2.1 % (0.0-2.0); % EOSINOPHILS 4.2 % (0.0-5.0); % LYMPHOCYTES 25.4 % (20.0-50.0); % MONOCYTES 8.5 % (2.0-10.0); % NEUTROPHILS 59.8 % (40.0-80.0); HEMATOCRIT 48.3 % (39.0-49.0); HEMOGLOBIN 16.6 gm/dL (12.6-17.4); MEAN CELL VOLUME 85.3 fl (80-99); MEAN CORPUSCULAR HEMOGLOBIN 29.3 pg (27.0-31.0); MEAN CORPUSCULAR HGB CONC 34.3 pg (28.0-36.0); MEAN PLATELET VOLUME 9.4 fl; NEUTROPHILE ABSOLUTE 3.8 Th/cmm (1.8-8.0); PLATELET COUNT 176 Th/cmm (150-400); RED BLOOD COUNT 5.66 Mil/cmm (3.80-5.80); RED CELL DISTRIBUTION WIDTH 13.9 % (11.5-20.0); WHITE BLOOD COUNT 6.5 Th/cmm (4.8-10.8)
[2016-10-08 09:49] LABS: ALB/GLOB RATIO 1.3 (1.0-1.8); ALKALINE PHOSPHATASE 81 U/L (34-104); ANION GAP 8.5 (7.0-16.0); BILIRUBIN,TOTAL 1.3 mg/dL (0.3-1.0); BUN - UREA NITROGEN 14 mg/dL (7-25); BUN/CREATININE RATIO 12.7; CALCIUM SERUM 9.4 mg/dL (8.6-10.3); CARBON DIOXIDE 26.2 mEq/L (21.0-31.0); CHLORIDE 103 mEq/L (98-107); CREATININE - SERUM 1.1 mg/dL (0.7-1.3); GLUCOSE 149 mg/dL (70-105); POTASSIUM SERUM 3.7 mEq/L (3.5-5.1); SGOT 17 U/L (13-39); SGPT/ALT 19 U/L (7-52); SODIUM SERUM 134 mEq/L (136-145)
[2016-10-09] MEDS: Pantoprazole 40 mg EC Tab PO SCH (07:37)
--- NOTE | 2016-10-09 08:15 | Consultation ---
DATE OF CONSULTATION: 10/08/2016 HISTORY OF PRESENT ILLNESS: The patient is a 71-year-old. The patient is brought in because of recurrent seizure. Here the patient is not having any seizures. The patient at the moment is sitting in chair. The patient is awake, alert, he will answer questions. PAST MEDICAL HISTORY: Atrial fibrillation, hypertension. The patient with history of seizures, dementia, had previous stroke. The patient had previous brain surgery, craniotomy. SOCIAL HISTORY: The patient does not smoke or drink. MEDICATIONS: The patient here is on Keppra ____, Lorazepam 1 mg p.r.n., risperidone 0.5, Xarelto. REVIEW OF SYSTEMS: No marked headache, no seizures. The patient is confused, very limited history. Ataxia. No chest pain. PHYSICAL EXAMINATION: VITAL SIGNS: Temperature 97.8, blood pressure 150/80. Pulse is around 76. NECK: Supple. No bruits. HEART: Sounds S1, S2. LUNGS: Clear. NEUROLOGIC: Awake, alert. The patient is sitting in a chair. He answers me. He gives me his name; when I ask him his age, ____ he says "I do not know my age." He does not know where he lived. He did not know what day or month or year it is. CRANIAL: Pupils react to light. Full eye movement. ____ nystagmus. No facial weakness. MOTOR: He will lift both arms about equal; legs, will lift ____. The patient definitely is unsteady. Reflexes: About ____ upper extremities, difficult to get at the knees and ankles. INVESTIGATIONS: The patient has CT scan of the head, abnormal showing extensive post surgical change in the left frontal and left temporal area. There is some ____. LABORATORY DATA: WBC 7.1, hemoglobin 15.9, sodium yesterday was 129, now 134. IMPRESSION: 1. Seizures. 2. History of previous craniotomy. 3. Cerebrovascular accident. 4. The patient has history of atrial fibrillation. 5. Hypertension. 6. Dementia. PLAN: Continue present medications. Continue with Keppra. JOB# [id number]
--- NOTE | 2016-10-09 08:26 | Discharge Summary ---
General Discharge Summary - Discharge Summary Date of Admission: 10/07/16 Admitting Diagnosis: Recurrent Seizure disorder, A-fib, Dementia, S/P CVA, S/P craneotomy Discharge Date: 10/09/16 Discharge Diagnosis: Recurrent seizure, Dementia, A-Fib, Obesity, S/P CVA, S/P craneotomy. Laboratory Findings: Laboratory Tests 10/08/16 10/08/16 08:40 08:40 WBC 6.5 RBC 5.66 Hgb 16.6 Hct 48.3 MCV 85.3 MCH 29.3 MCHC Differential 34.3 RDW 13.9 Plt Count 176 MPV 9.4 Neutrophils % 59.8 Lymphocytes % 25.4 Monocytes % 8.5 Eosinophils % 4.2 Basophils % 2.1 H Sodium 134 L Potassium 3.7 Chloride 103 Carbon Dioxide 26.2 Anion Gap 8.5 BUN 14 Creatinine 1.1 Est GFR ( Amer) > 60.0 Est GFR (Non-Af Amer) > 60.0 BUN/Creatinine Ratio 12.7 Glucose 149 H Calcium 9.4 Total Bilirubin 1.3 H AST 17 ALT 19 Alkaline Phosphatase 81 Total Protein 6.8 Albumin 3.9 L Globulin 2.9 Albumin/Globulin Ratio 1.3 Hospital Course: Patient came from SNF due to recurrent seizure, after hospitalization he had no more seizures, Labs were normal, CT shows extensive damage secondary to CVA and surgery. He responded well to treatment. Treatment: He was started in IV NS, Ativan Continue with Keppra and all SNF medication, consult with Neuro was done and recommendations were follow. Condition at Discharge: Stable Disposition: Discharge/Transfered to SNF Home Medications: Home Medication Medication Instructions Recorded Type Metoprolol Succinate 25 mg PO DAILY 05/11/16 History Pantoprazole [Protonix] 40 mg PO DAILY 05/11/16 History Atorvastatin Calcium [Lipitor] 80 mg PO HS #0 tab 05/14/16 Rx Thiamine HCL [Vitamin B1] 100 mg IM DAILY #0 vial 05/14/16 Rx risperiDONE [RisperDAL] 0.5 mg PO BID #0 tab 05/14/16 Rx Levetiracetam [Keppra] 1,000 mg PO DAILY 10/07/16 History Levetiracetam [Keppra] 1,500 mg PO HS 10/07/16 History Rivaroxaban [Xarelto] 10 mg PO QDAC@1700 10/07/16 History Inpatient Medications: Current Medications Atorvastatin Calcium (Lipitor) 80 mg PO HS [facility] PRN Reason: Protocol Stop: 12/06/16 20:59 Last Admin: 10/08/16 21:30 Dose: 80 mg Heparin Sodium (Porcine) (Heparin) 5,000 units SUBQ Q12HR [facility] Stop: 12/06/16 20:59 Last Admin: 10/08/16 21:46 Dose: 5,000 units Levetiracetam (Keppra) 1,500 mg PO HS [facility] Stop: 12/06/16 20:59 Last Admin: 10/08/16 21:30 Dose: 1,500 mg Levetiracetam (Keppra) 1,000 mg PO DAILY [facility] Stop: 12/06/16 08:59 Last Admin: 10/08/16 08:15 Dose: 1,000 mg Lorazepam (Ativan) 1 mg IVP Q6H PRN; Protocol PRN Reason: Seizures Stop: 12/06/16 05:50 Metoprolol Succinate (Toprol Xl) 25 mg PO DAILY [facility] Stop: 12/06/16 11:59 Last Admin: 10/08/16 08:16 Dose: 25 mg Miscellaneous (Vte Chemical Prophylaxis Screen/ Admission) 1 ea [facility] PRN PRN PRN Reason: PROTOCOL Stop: 12/06/16 15:48 Pantoprazole Sodium (Protonix) 40 mg PO QDAC [facility] Stop: 12/06/16 11:29 Last Admin: 10/09/16 07:37 Dose: 40 mg Risperidone (Risperdal) 0.5 mg PO BID [facility] PRN Reason: Protocol Stop: 12/06/16 16:59 Last Admin: 10/08/16 17:43 Dose: 0.5 mg Rivaroxaban (Xarelto) 10 mg PO QDAC@1700 [facility] Stop: 12/06/16 16:59 Last Admin: 10/08/16 17:43 Dose: 10 mg Activity: As Tolerated Discharge Diet: 2 Gram Sodium Consults and Follow-Up: CATERINA MOON [Other] not on staff,PCP is [Primary Care Provider] - Consulting Speciality: Cardiac, Neurology (Patient should be follow by PCP and Neurology.)
--- NOTE | 2016-10-10 04:58 | Admit Criteria Form ---
Admit Criteria Forms - Admit Criteria Diagnosis: SEIZURE Clinical Indications for Admission to Inpatient Care (Place 'X' for any and all applicable criteria): Admission is indicated for seizure and ANY ONE of the following(1)(2)(3)(4)(5): [X ]I. Inpatient admission required rather than observation care (Also use Seizure: Observation Care Criteria as appropriate) because of ANY ONE of the following: [ ]a) Altered mental status that is severe or persistent [ ]b) New focal neurologic deficit that is severe or persistent [ ]c) Metabolic disorder (eg, hypoglycemia, hyponatremia) that is severe or persistent [X ]d) Recurrent seizure [ ]e) Outpatient antiseizure regimen cannot be established (eg , patient cannot tolerate medication, initiation requires inpatient care) [ ]f) Need for ongoing intravenous infusion of antiseizure medication [ ]g) Cardiac arrhythmias of immediate concern [ ]h) Cerebral bleeding, hydrocephalus, or vasospasm monitoring (14) [ ]i) Increased intracranial pressure or cerebral edema monitoring (15) [ ]j) Other treatment or monitoring requiring inpatient admission [ ]II. Status epilepticus [A] or repetitive seizures not controlled with emergent treatment (6)(8) [ ]III. Brain disorder (eg, tumor, edema, and hydrocephalus) that requiring monitoring or intervention available only at inpatient level of care. [ ]IV. Brain insult (eg, severe trauma, stroke, drug toxicity, or withdrawal) that requires monitoring or intervention available only at inpatient level of care (10)(11) Extended stay beyond goal length of stay may be needed for (22) [ ]a) Complications of status epilepticus [ ]b) Refractory status epilepticus [ ]c) Etiology-specific therapy for conditions such as [employer] infection, head injury,eclampsia, severe metabolic abnormalities, and brain tumor [ ]d) Residual neurologic damage, [ ]e) Initiation of significant change to anticonvulsant treatment [ ]f) Older patients (65 years or older) [ ]g) Patient requiring intubation (eg, to protect airway) The original [facility] content created by [employer] has been revised. The portions of the content which have been revised are identified through the use of italic text or in bold, and [employer] has neither reviewed nor approved the modified material. All other unmodified content is copyright [facility] [employer] Please see references footnoted in the original [facility] edition 2016 Admit Criteria Met?: Yes
== END 2016-10-09 16:05 | disposition home or self-care (01) | DRG 101 ==
LOC: ER 02:04 → TELE 05:37
PROVIDERS: ADMIT General Practice; ATTEND General Practice
DX: G40.909 Epilepsy, unspecified, not intractable, without status epilepticus (principal); I48.2 Chronic atrial fibrillation; F03.90 Unspecified dementia, unspecified severity, without behavioral disturbance, psychotic disturbance, mood disturbance, and anxiety; I10 Essential (primary) hypertension; E78.5 Hyperlipidemia, unspecified; F20.9 Schizophrenia, unspecified; Z87.891 Personal history of nicotine dependence; Z79.899 Other long term (current) drug therapy; Z86.73 Personal history of transient ischemic attack (TIA), and cerebral infarction without residual deficits; Z98.890 Other specified postprocedural states
CPT/HCPCS: 36415-UA; 70450-TC; 80053-TC; 83735-TC; 85025-TC; 85610-TC; 93005; 96374; J1644; J2060; Z7610